=== PATIENT | female | born 1965 | race Caucasian/White ===

== ENCOUNTER 2017-03-30 07:30 | Inpatient (IN) | payer OTHER ==
[~2017-03-30 07:30] MED LIST: ADVIL200 MG PO; ASPIRIN325 MG PO; ASPIRIN81 M1 PO; CELEBREX200 MG PO; COREG12.5 M1 PO; CPAP; ENBREL50 MG/M1 SQ; ETODOLAC500 M1 PO; FOLIC ACID0.4 M1 PO; Iron PO; LISINOPRIL30 M1 PO; LOW DOSE ASPIRI81 M1 PO; METFORMIN HCL1000 M2 PO; METHOTREXATE2.5 M1 PO; MICROZIDE12.5 M1 PO; MILK OF MAGNESIA PO; MOBIC15 M1 PO; MULTIVITAMINS1 EAC6 PO; NORVASC5 M2 PO; OMEPRAZOLE20 M4 PO; ROXICODONE5 MG PO; SENOKOT-S (SENN1 TA1 PO; SYNTHROID150 MC1 PO; TYLENOL325 M1 PO; ULTRAM50 MG PO
[2017-03-31 04:58] LABS: BASO % 0.1 % (0-2); HCT-HEMATOCRIT 36.4 % (34.0-49.0); HGB-HEMOGLOBIN 12.3 gm/dl (12.0-15.5); IMMATURE GRANULOCYTES ABSOLUTE 0.03 tho/cmm (0-0.03); IMMATURE GRANULOCYTES PERCENT 0.2 % (0-0.3); LYMPH % 12.3 % (20-45); LYMPH ABSOLUTE COUNT 1.5 tho/cmm (0.8-4.5); MCH (MEAN CORPUSCULAR HGB) 31.4 pg (28.0-32.0); MCHC MEAN CORPUSCULAR HGB CONC 33.8 % (32.0-36.0); MCV (MEAN CELL VOLUME) 92.9 fl (82.0-96.0); MEAN PLATELET VOLUME 10.6 cmc (9.4-12.4); MONO % 5.6 % (0-12); MONOCYTE ABSOLUTE COUNT 0.7 tho/cmm (0.0-1.2); NEUTROPHILS % 81.8 % (40-80); PLATELET COUNT 335 tho/cmm (150-450); RED BLOOD COUNT 3.92 mil/cmm (4.00-5.20); RED CELL DISTRIBUTION WIDTH 13.5 % (12.4-16.4); WHITE BLOOD COUNT 12.2 tho/cmm (4.0-10.0)
[2017-04-01 06:10] LABS: HGB-HEMOGLOBIN 11.5 gm/dl (12.0-15.5); PLATELET COUNT 280 tho/cmm (150-450)
[2017-04-01] MEDS ORDERED: LORTAB ELIXER PO (13:12)
[2017-04-01] MEDS ORDERED: ZOFRAN4 M2 PO (13:13)
== END 2017-04-01 15:40 | DRG 621 ==
LOC: SHSC 07:30 → ORW 09:53 → PACU 12:05 → 5WD 14:35
PROVIDERS: ADMIT Surgery
PROC: 0DB64Z3 Excision of Stomach, Percutaneous Endoscopic Approach, Vertical (ICD-10-PCS; principal; 2017-03-30)
DX: E66.01 Morbid (severe) obesity due to excess calories (principal); E11.65 Type 2 diabetes mellitus with hyperglycemia; I10 Essential (primary) hypertension; Z68.44 Body mass index [BMI] 60.0-69.9, adult; E03.9 Hypothyroidism, unspecified; M17.10 Unilateral primary osteoarthritis, unspecified knee; E55.9 Vitamin D deficiency, unspecified; Z79.02 Long term (current) use of antithrombotics/antiplatelets; Z79.82 Long term (current) use of aspirin; Z79.84 Long term (current) use of oral hypoglycemic drugs; N39.3 Stress incontinence (female) (male)
CPT/HCPCS: J0780; J1170; J1200; J1650; J1885; J1956; J2270; J2405; J2550; J2765; J3010; J3480; J7030